=== PATIENT | female | born 1990 | race Caucasian/White ===

== ENCOUNTER 2017-10-30 09:17 | Outpatient (CLI) | payer MEDICAID ==
[~2017-10-30] VITALS: Ht 149.9 cm; Wt 64.1 kg
[2017-10-30 09:39] VITALS: BP 129/83; PULSE 72; TEMP 97.9
[2017-10-30] MEDS ORDERED: PRENATAL MVI (09:44)
[2017-10-30 10:25] VITALS: BP 109/76; PULSE 75
== END 2017-10-30 10:25 | disposition home or self-care (01) ==
LOC: LDRO 09:17 → LDR 09:30 → LDRO 10:25
DX: O99.89 Other specified diseases and conditions complicating pregnancy, childbirth and the puerperium (principal); N89.8 Other specified noninflammatory disorders of vagina; Z3A.37 37 weeks gestation of pregnancy
CPT/HCPCS: OP

== ENCOUNTER 2017-11-02 19:01 | Inpatient (IN) | payer MEDICAID ==
[~2017-11-02] VITALS: Ht 149.9 cm; Wt 64.1 kg
[2017-11-02] VITALS (7 sets, daily range): BP systolic 112–142; BP diastolic 60–88; PULSE 74–104; TEMP 98.1
[~2017-11-02 19:01] MED LIST: PRENATAL MVI
[2017-11-02 20:38] LABS: BASO # 0.1 (0.0-0.2); BASO % 0.3 % (0.0-2.0); EOS % 0.2 % (0-4.0); GRAN # 17.5 (1.4-6.5); GRAN % 83.4 % (42.2-75.2); HEMOGLOBIN 12.3 g/dl (12.5-16.0); LYMPH # 2.1 (1.2-3.4); LYMPH % 9.8 % (20.0-51.0); MEAN CELL VOLUME 83 fl (80.0-100.0); MEAN CORPUSCULAR HEMOGLOBIN 29 pg (27.0-31.0); MEAN CORPUSCULAR HGB CONC 35 g/dl (33.0-37.0); MEAN PLATELET VOLUME 11.6 fl (7.4-10.4); MONO # 1.2 (0.1-0.6); MONO % 5.7 % (1.7-9.3); PLATELET COUNT 173 K/mm3 (130-400); RED BLOOD COUNT 4.27 M/mm3 (4.10-5.30); REDCELL DISTRIBUTION WIDTH-CV 13.8 % (11.5-14.5)
[2017-11-02 20:39] LABS: HEMATOCRIT 35.4 % (37.0-47.0)
[2017-11-02] MEDS ORDERED: MOTRIN 800800 MG/TAB PO (22:03)
[2017-11-03 02:01] VITALS: BP 105/51; PULSE 79; TEMP 97.9
[2017-11-03 05:28] VITALS: BP 119/59; PULSE 79; TEMP 98
[2017-11-03 08:15] VITALS: BP 113/64; PULSE 80; TEMP 98
[2017-11-03 12:30] VITALS: BP 132/70; PULSE 73; TEMP 97.2
[2017-11-03 16:15] VITALS: BP 114/65; PULSE 87; TEMP 97.6
[2017-11-03 21:15] VITALS: BP 120/82; PULSE 95; TEMP 97.8
[2017-11-04 08:30] VITALS: BP 115/67; PULSE 77; TEMP 97.6
== END 2017-11-04 10:30 | disposition home or self-care (01) | DRG 775 ==
LOC: LDRO 19:01 → OB 20:08 → LDR 20:08 → OB 22:00
PROVIDERS: Obstetrics & Gynecology
PROC: 10E0XZZ Delivery of Products of Conception, External Approach (ICD-10-PCS; principal; 2017-11-02)
DX: O69.81X0 Labor and delivery complicated by cord around neck, without compression, not applicable or unspecified (principal); Z3A.37 37 weeks gestation of pregnancy; Z37.0 Single live birth
CPT/HCPCS: J2590

== ENCOUNTER 2018-12-12 | Inpatient (IN) | payer MEDICAID ==
[2018-12-12] VITALS (13 sets, daily range): BP systolic 109–139; BP diastolic 56–85; PULSE 57–86; TEMP 97.7–98.5
[~2018-12-12] VITALS: Ht 144.8 cm; Wt 66.8 kg
[~2018-12-12] MED LIST changes: +MOTRIN 800800 MG/TAB PO
--- NOTE | 2018-12-12 | NUR ---
0000- Patient ambulatory to [facility] with HUMZA, Manjeet, and technology solutions architect from ED. Patient is actively breathing and grimacing through contractions. Patient into restroom to change into gown. 0015- EFM and TOCO on and tracing. SVE /1 by RADHA Reyes. Assessment completed. 0020- See Physician Notification. Admission orders received.
--- NOTE | 2018-12-12 00:48 | NUR ---
0040 - Pt reports feeling more pressure, SVE 8/90/0 with bulging bag of water. Dr. Estevez notified, will come to hospital for delivery. Nursery updated. 0045 - Pt appears to be pushing with contractions, pt states she is not but feels like she really needs to. SVE 10/100/+1, membranes intact. Nursery at bedside. Pt encouraged to not push and breath through contractions. 0048 - Pt unable to resist urge to push. Pt pushed to deliver viable baby girl. Head delivered atraumatically, shoulders followed after additional push. Infant delivered by RADHA Reyes. Cord clamped by this RN and cut by FOB. Dr. Estevez at bedside at this time. 0050 - Pt positioned into footplates for delivery of placenta. Cord blood obtained. 0053 - Spontaneous delivery of intact placenta by Dr. Estevez. Pitocin started at 333 mL/hr per protocol. Fundal massage by Dr. Estevez. Perineum intact, small superficial tear to right upper labia, no repair done. 0055 - Fundal check by this RN, firm and at umbilicus. New chex beneath patient, ice pack applied to perineum. Pt repositioned in bed for comfort. 0100 - recovery started.
[2018-12-12 01:03] LABS: BASO % 0.4 % (0.0-2.0); EOS # 0.1 (0.0-0.7); EOS % 0.8 % (0-4.0); GRAN # 6.4 (1.4-6.5); GRAN % 69.7 % (42.2-75.2); HEMOGLOBIN 10.9 g/dl (12.5-16.0); LYMPH % 21.9 % (20.0-51.0); MEAN CELL VOLUME 81 fl (80.0-100.0); MEAN CORPUSCULAR HEMOGLOBIN 27 pg (27.0-31.0); MEAN CORPUSCULAR HGB CONC 33 g/dl (33.0-37.0); MEAN PLATELET VOLUME 12.9 fl (7.4-10.4); MONO # 0.6 (0.1-0.6); MONO % 6.8 % (1.7-9.3); PLATELET COUNT 146 K/mm3 (130-400); RED BLOOD COUNT 4.12 M/mm3 (4.10-5.30); REDCELL DISTRIBUTION WIDTH-CV 14.5 % (11.5-14.5)
[2018-12-12 01:10] LABS: HEMATOCRIT 33.2 % (37.0-47.0)
--- NOTE | 2018-12-12 02:30 | NUR ---
Patient into restroom to void and change into clean gown. Patient ambulated with no assist (stand-by only) to PP room.
--- NOTE | 2018-12-12 09:53 | NUR ---
Initial visit; Parents thanked Playground Attendant for offering congratulations for the of their daughter and for choosing our hospital.
[2018-12-13] MEDS ORDERED: MOTRIN 800800 MG/TAB PO (07:26)
[2018-12-13 09:25] VITALS: BP 116/76; PULSE 60; TEMP 98.1
== END 2018-12-13 12:05 | disposition home or self-care (01) | DRG 807 ==
LOC: LDRO → OB 00:30 → LDR 00:30 → OB 02:00
PROVIDERS: Student in an Organized Health Care Education/Training Program; ADMIT Obstetrics & Gynecology
PROC: 10E0XZZ Delivery of Products of Conception, External Approach (ICD-10-PCS; principal; 2018-12-12)
DX: O62.3 Precipitate labor (principal); Z37.0 Single live birth; Z3A.38 38 weeks gestation of pregnancy; O71.82 Other specified trauma to perineum and vulva; O99.344 Other mental disorders complicating childbirth; F41.9 Anxiety disorder, unspecified
CPT/HCPCS: J2590; J7120

== ENCOUNTER 2021-12-27 17:22 | Emergency (ER) | payer MEDICAID ==
[~2021-12-27] VITALS: Ht 149.9 cm; Wt 68.2 kg
[2021-12-27 17:36] VITALS: BP 124/90; PULSE 75; TEMP 97.9
== END 2021-12-27 18:51 | disposition home or self-care (01) ==
LOC: COL.ER 17:22
DX: S01.111A Laceration without foreign body of right eyelid and periocular area, initial encounter (principal); Z28.310 Unvaccinated for COVID-19; W26.8XXA Contact with other sharp object(s), not elsewhere classified, initial encounter